=== PATIENT | male | born 1970 | race Asian ===

== ENCOUNTER 2017-12-09 01:33 | Inpatient (IN) | END 2017-12-10 16:54 | disposition home or self-care (01) | DRG 918 ==

== ENCOUNTER 2018-12-24 19:18 | Inpatient (IN) | payer MEDICAID ==
[~2018-12-24] VITALS: Ht 177.8 cm; Wt 68.5 kg
[2018-12-24] MEDS ORDERED: morphine 4 MG/ML VIAL IV STA (19:51)
[2018-12-24] MEDS ORDERED: ONDANSETRON 4 MG INJ IV STA (19:51)
[2018-12-24] MEDS ORDERED: ASPIRIN 325 MG TAB PO STA (19:51)
[2018-12-24] MEDS ORDERED: NITROGLYCERIN (SL) 0.4 MG TAB SL PRN (20:00)
[2018-12-24] MEDS: NICARDipine HCL 30 MG CAPSULE PO ONE (20:30)
[2018-12-24] MEDS ORDERED: NITROGLYCERIN 50 MG/D5W (PMX) 250 ML IV STA (20:39)
[2018-12-24] MEDS ORDERED: ALBUTEROL/IPRATROPIUM (NEB) 3 ML AMP HHN STA (20:39)
[2018-12-24] MEDS ORDERED: FUROSEMIDE 40 MG INJ IV ONE (21:00)
[2018-12-24] MEDS ORDERED: LABETALOL HCL 20MG INJ IV ONE (22:00)
--- NOTE | 2018-12-24 23:08 | ERD ---
ER Documentation Chief Complaint Chief Complaint PIETRO CAMEJO, has defib unable to sleep since last night HPI This is a very pleasant 48-year-old male with a past medical history of a pacemaker who presents to the emergency department complaining of chest pain and shortness of breath for the past several weeks. The patient indicates that the chest pain and shortness of breath has been persistent. The patient is unable to sleep at night without feeling short of breath when he is lying supine. He also indicates he is unable to walk several steps before becoming short of breath. Yesterday evening he stated his symptoms of shortness of breath significantly worsened. He denies any recent travel or prolonged immobilization. He states years ago he did take Lasix but has not been on any medications other than Coreg. The pacemaker was placed 3 years ago and the patient states his engineer soils named Dr. Coleman. He denies any fever shaking or chills. He denies any abdominal pain. ROS All systems reviewed and are negative except as per history of present illness. Medications Home Meds No Active Prescriptions or Reported Meds Allergies Allergies: Coded Allergies: No Known Allergy (Unverified , 12/08/17) PMhx/Soc History of Surgery: Yes (Pacemaker placement) Anesthesia Reaction: No Hx Neurological Disorder: No Hx Respiratory Disorders: No Hx Cardiac Disorders: Yes (HTN, CHF) Hx Psychiatric Problems: No Hx Miscellaneous Medical Probl: No Hx Alcohol Use: Yes (1-2 times monthly) Hx Substance Use: Yes (ETOH 2X A MONTH ) Hx Tobacco Use: Yes (Socially) Smoking Status: Current some day smoker Physical Exam Vitals Vital Signs Date Temp Pulse Resp B/P (MAP) Pulse Ox O2 O2 Flow FiO2 Time Delivery Rate 12/24/18 70 20 129/100 100 Room Air 22:50 (110) 12/24/18 70 18 154/106 100 Room Air 22:30 (122) 12/24/18 70 166/129 100 Room Air 22:15 (141) 12/24/18 67 20 179/133 100 Room Air 22:10 (148) 12/24/18 68 20 172/126 100 Room Air 22:05 (141) 12/24/18 68 19 169/127 Room Air 22:00 (141) 12/24/18 70 18 178/125 96 21:55 (142) 12/24/18 70 205/157 21:45 (173) 12/24/18 91 213/139 21:30 (163) 12/24/18 21 197/148 100 Room Air 21:20 (164) 12/24/18 91 19 205/156 100 Room Air 21:15 (172) 12/24/18 90 18 209/155 100 Room Air 21:10 (173) 12/24/18 90 20 216/121 100 Room Air 21:05 (152) 12/24/18 98 20 216/156 100 Room Air 21:00 (176) 12/24/18 95 19 211/139 97 Room Air 19:50 (163) 12/24/18 97.8 99 24 213/148 99 19:43 (169) Physical Exam Constitutional:Well-developed. Well-nourished. Patient was in no respiratory distress HEENT:Normocephalic. Atraumatic.Pupils were equal round reactive to light. Moist mucous membranes.No tonsillar exudates. Neck: No nuchal rigidity. No lymphadenopathy. No posterior cervical spine tenderness or step-offs. Respiratory: Not using accessory muscles of respiration.Lungs were clear to auscultation bilaterally. Bilateral rhonchi. No rales. No wheezing. Cardiovascular: Regular rate regular rhythm.No murmurs. No rubs were apprec iated.S1, S2 normal. Distal pulses are palpable 2+ bilaterally. GI: Abdomen was soft. Nontender. Non Distended. No pulsatile abdominal masses or bruits. No rebound. No guarding. Bowel sounds were present and normal. Muscle skeletal: Full range of motion of both the upper and lower extremities bilaterally.Normal muscle tone.No assymetrical calf tenderness or swelling. Skin: No petechia, no purpura. No lesions on the palms or the soles of the feet. No maculopapular rash. NEURO: Patient was alert, awake, orientated x3.No facial droop. Gait observed and normal with no ataxia.Speech had regular rate and rhythm. No focal neurological deficits. Result Diagram: 12/24/18200912/24/182009 Results 24 hrs Laboratory Tests Test 12/24/18 20:10 White Blood Count 8.2 10^3/ul Red Blood Count 5.63 10^6/ul Hemoglobin 16.8 g/dl Hematocrit 51.3 % Mean Corpuscular Volume 91.1 fl Mean Corpuscular Hemoglobin 29.8 pg Mean Corpuscular Hemoglobin Concent 32.7 g/dl Red Cell Distribution Width 15.1 % Platelet Count 249 10^3/UL Mean Platelet Volume 9.5 fl Immature Granulocytes % 0.200 % Neutrophils % 72.0 % Lymphocytes % 18.9 % Monocytes % 6.7 % Eosinophils % 1.1 % Basophils % 1.1 % Nucleated Red Blood Cells % 0.0 /100WBC Immature Granulocytes # 0.020 10^3/ul Neutrophils # 5.9 10^3/ul Lymphocytes # 1.5 10^3/ul Monocytes # 0.6 10^3/ul Eosinophils # 0.1 10^3/ul Basophils # 0.1 10^3/ul Nucleated Red Blood Cells # 0.0 10^3/ul Prothrombin Time 13.4 Sec Prothrombin Time Ratio 1.0 INR International Normalized Ratio 1.01 Activated Partial Thromboplast Time 36.9 Sec Sodium Level 141 mmol/L Potassium Level 4.4 mmol/L Chloride Level 103 mmol/L Carbon Dioxide Level 24 mmol/L Anion Gap 14 Blood Urea Nitrogen 32 mg/dl Creatinine 2.86 mg/dl Est Glomerular Filtrat Rate mL/min 24 mL/min Glucose Level 123 mg/dl Calcium Level 10.2 mg/dl Total Bilirubin 1.1 mg/dl Direct Bilirubin 0.00 mg/dl Indirect Bilirubin 1.1 mg/dl Aspartate Amino Transf (AST/SGOT) 29 IU/L Alanine Aminotransferase (ALT/SGPT) 26 IU/L Alkaline Phosphatase 117 IU/L Creatine Kinase 63 IU/L Creatine Kinase Index 2.7 Creatinine Kinase MB (Mass) 1.67 ng/ml Troponin I 0.074 ng/ml B-Type Natriuretic Peptide 32511 PG/ML Total Protein 8.9 g/dl Albumin 4.9 g/dl Globulin 4.00 g/dl Albumin/Globulin Ratio 1.22 Current Medications Medications Dose Sig/Jayden Start Time Status Last (Trade) Ordered Route PRN Stop Time Admin Dose Reason Admin Aspirin 325 mg ONCE STAT 12/24/18 DC 12/24/18 (Aspirin) PO 19:51 12/24/18 20:14 19:52 1 tab Q5M UP TO 3 12/24/18 12/24/18 Nitroglycerin DOSES PRN 20:00 20:14 SL .CHEST (Nitroglyceri PAIN n (Sl Tab) 0.4 Mg) Morphine 4 mg ONCE STAT 12/24/18 DC 12/24/18 Sulfate IV 19:51 12/24/18 20:15 (morphine) 19:52 Ondansetron 4 mg ONCE STAT 12/24/18 DC 12/24/18 HCl (Zofran IV 19:51 12/24/18 20:14 Inj) 19:52 Nicardipine 30 mg ONCE ONCE 12/24/18 DC 12/24/18 HCl PO 20:30 12/24/18 20:30 (Cardene) 20:31 Furosemide 40 mg ONCE ONCE 12/24/18 DC 12/24/18 (Lasix) IV 21:00 12/24/18 21:15 21:01 250 ml @ ONCE STAT 12/24/18 12/24/18 Nitroglycerin 12 mls/hr IV 20:39 12/25/18 20:48 / Dextrose 17:28 Albuterol/ 3 ml ONCE STAT 12/24/18 DC Ipratropium HHN 20:39 12/24/18 (Duoneb) 20:43 Labetalol 20 mg ONCE ONCE 12/24/18 DC 12/24/18 HCl IV 22:00 12/24/18 21:51 (Labetalol) 22:01 Procedures/MDM The patient presented to the emergency department with shortness of breath. My differential diagnosis included but was not limited to upper airway obstruction, CHF, pulmonary embolism, cardiac ischemia, pneumonia, pneumothorax, anemia, drug overdose, pulmonary edema, COPD or asthma. I obtained a 1 view chest radiograph which showed pulmonary vascular congestion. There was also cardiomegaly. The patient was given nebulizer treatments of albuterol and Atrovent. This patient presented to the emergency department with severely elevated blood pressure. My differential diagnosis included but was not limited to conditions that could end-organ damage such as acute coronary syndrome, acute pulmonary edema, aortic dissection, subarachnoid hemorrhage, intracerebral hemorrhage, cerebral infarction, withdrawal syndromes from beta blockers, or states of catecholamine excess such as pheochromocytoma or drug intoxication. The patient had uncontrolled hypertensive with end-organ damage to suggest hypertensive emergency. The treatment goal was immediate reduction of the mean arterial blood pressure. This was done in a controlled, graded manor, using improvement of the patient's condition as a guide. The patient's blood pressure reduction did not exceed more then a 20-25 percent reduction within the first 30 to 60 minutes. The patient was put on a cardiac cath lab radiology technologist, continuous pulse oximetry, and IV access was established by nursing staff. The antihypertensive agent used was nitroglycerin given that the patient was in severe congestive heart failure. The patient was also given a IV labetalol. His blood pressure had significantly improved. 12 Lead EKG tracing ordered and reviewed by myself showed: Sinus tachycardia 101 bpm and no arrhythmia. MN interval normal. QRS duration normal. No ST segment elevation No ST segment depression. No changes consistent with acute ischemia. Critical Care: Time: 90 minutes Treatments/Evaluations: Close monitoring and treatment of unstable vital signs, cardiorespiratory, and neurologic status, while maintaining tight balance of fluid, respiratory, and cardiac interventions. Time does not include performing any of the above billable procedures. Departure Diagnosis: Primary Impression: Hypertensive emergency Additional Impressions: Congestive heart failure Heart failure type: unspecified Heart failure chronicity: acute Qualified Codes: I50.9 - Heart failure, unspecified Renal failure Renal failure chronicity: acute Acute renal failure type: unspecified Qualified Codes: N17.9 - Acute kidney failure, unspecified Condition: Serious ALONA BAUER MD Dec 24, 2018 23:08
[2018-12-24] MEDS ORDERED: CARV3.1260 PO (23:10)
--- NOTE | 2018-12-24 23:16 | HP ---
Date/Time of Note Date/Time of Note DATE: 12/24/18 TIME: 23:16 Assessment/Plan VTE Prophylaxis Pharmacological prophylaxis: heparin Lines/Catheters IV [facility]from [facility] Saline Lock Assessment/Plan Hospital Course This is a 48-year-old male being admitted to the ICU floor for: #1 hypertensive emergency: With evidence of end organ damage. Surprisingly patient does not appear to be overtly volume overloaded or in any respiratory distress. He does have some vascular congestion on chest x-ray and on exam. He was initially given nicardipine however this is not help with his blood pressure and was subsequently started on a nitro drip which was titrated slowly and did result in improvement of his blood pressure. At the current time will maintain nitro drip to a goal of BP less than 160/115. Wean off nitro drip over the next 24 hours and initiate oral antihypertensives. Will check renal ultrasound with Dopplers given his creatinine of 2.86 which is significantly increased from 1 year ago of 1.40. We will also check an echocardiogram. #2 Acute on chronic systolic versus diastolic CHF exacerbation: Patient's EF a pproximately 1 year ago showed 50% ejection fraction. He does have vascular congestion but overtly does not appear to be significantly volume overloaded. He did receive Lasix in the ED however he has not urinated yet, will add Zaroxolyn and give another dose of Lasix 20 mg IV and reassess urine output. Salt restriction and fluid restriction. Will repeat an echocardiogram to assess heart morphology. Will consult cardiology. . Will resume carvedilol over the next 24 hours. We will hold off on any ABHIJEET inhibitor at the current time given patient's renal dysfunction and monitor renal function. Will check hemoglobin A1c, lipid panel, TSH. BNP elevated at 33,000 #3 acute on chronic kidney disease: Possibly in the setting of hypertensive nephrosclerosis. Previous creatinine is 1.40 today it is 2.86. This may be patient's new baseline. Will monitor patient's renal function. Will hold off on any ABHIJEET inhibitor or ARB at the current time. Will obtain a renal ultrasound with Doppler studies. Will consult nephrology. #4 Loop Recorder: patient reports pacemaker but on cxr appears to be loop recorder, cardio consulted appreciate recs. #5 Hypertension: Currently only on Coreg:, Please see #1. #6 DVT GI prophylaxis: SCDs, Protonix Greater than 45 minutes of critical care time was spent on care management this patient. Further treatment strategy will be implemented as per the clinical course. Result Diagram: 12/24/18200912/24/182009 Results 24hrs Laboratory Tests Test 12/24/18 20:10 White Blood Count 8.2 # Red Blood Count 5.63 # Hemoglobin 16.8 # Hematocrit 51.3 # Mean Corpuscular Volume 91.1 Mean Corpuscular Hemoglobin 29.8 Mean Corpuscular Hemoglobin Concent 32.7 Red Cell Distribution Width 15.1 H Platelet Count 249 Mean Platelet Volume 9.5 Immature Granulocytes % 0.200 Neutrophils % 72.0 Lymphocytes % 18.9 Monocytes % 6.7 Eosinophils % 1.1 Basophils % 1.1 Nucleated Red Blood Cells % 0.0 Immature Granulocytes # 0.020 Neutrophils # 5.9 Lymphocytes # 1.5 Monocytes # 0.6 Eosinophils # 0.1 Basophils # 0.1 Nucleated Red Blood Cells # 0.0 Prothrombin Time 13.4 Prothrombin Time Ratio 1.0 INR International Normalized Ratio 1.01 Activated Partial Thromboplast Time 36.9 H Sodium Level 141 Potassium Level 4.4 Chloride Level 103 Carbon Dioxide Level 24 Anion Gap 14 H Blood Urea Nitrogen 32 H Creatinine 2.86 H Est Glomerular Filtrat Rate mL/min 24 L Glucose Level 123 Calcium Level 10.2 Total Bilirubin 1.1 Direct Bilirubin 0.00 Indirect Bilirubin 1.1 Aspartate Amino Transf (AST/SGOT) 29 Alanine Aminotransferase (ALT/SGPT) 26 Alkaline Phosphatase 117 Creatine Kinase 63 Creatine Kinase Index 2.7 Creatinine Kinase MB (Mass) 1.67 Troponin I 0.074 B-Type Natriuretic Peptide 98482 H Total Protein 8.9 H Albumin 4.9 Globulin 4.00 H Albumin/Globulin Ratio 1.22 HPI/ROS Admit Date/Time Admit Date/Time Hx of Present Illness Chief complaint: Chest pain, shortness of breath for the last several weeks This is a very pleasant 48-year-old male with a past medical history of a pacemaker who presents to the emergency department complaining of chest pain and shortness of breath for the past several weeks. The patient indicates that the chest pain and shortness of breath has been persistent. The patient is unable to sleep at night without feeling short of breath when he is lying supine. He also indicates he is unable to walk several steps before becoming short of breath. Yesterday evening he stated his symptoms of shortness of breath significantly worsened. He denies any recent travel or prolonged immobilization. He is currently only on Coreg, he did report that in the past he was on Lasix.. The pacemaker was placed 3 years ago and the patient states his search marketing specialist named Dr. Coleman. He denies any fever shaking or chills. He denies any abdominal pain. Allergies: NKDA Medications: See Nov Const: As per HPI Eyes : No pain discharge or redness or change in visual acuity ENT: No pain, sore throat, congestion, congestion, dysphagia or discharge Respiratory: No shortness of breath, cough, sputum, wheezing, or pleuritic pain Cardiovascular: As per HPI GI : no change in appetite, abdominal pain, nausea, vomiting, diarrhea, constipation, or change in the color his stool Genitourinary: No dysuria, hematuria, flank pain , discharge or CVA tenderness Musculoskeletal: No joint pain, back pain, neck pain, restricted range of motion in neck or joints Skin: No rash, bruising or hives Neuro: No headache, dizziness, syncope, seizure, focal weakness Endocrine: No polyuria, polydipsia, temperature intolerance Psych: No hallucination, depression, anxiety or suicidal ideation PMH/Family/Social Past Medical History Hypertension, history of CHF Medications Current Medications Nitroglycerin (Nitroglycerin (Sl Tab) 0.4 Mg) 1 tab Q5M UP TO 3 DOSES PRN SL .CHEST PAIN Last administered on 12/24/18at 20:14; Admin Dose 1 TAB; Start 12/24/18 at 20:00 Nitroglycerin/ Dextrose 250 ml @ 12 mls/hr ONCE STAT IV Last administered on 12/24/18at 20:48; Admin Dose 12 MLS/HR; Start 12/24/18 at 20:39; Stop 12/25/18 at 17:28 Ondansetron HCl (Zofran Inj) 4 mg Q6H PRN IV NAUSEA AND/OR VOMITING; Start 12/24/18 at 23:30; Status UNV Acetaminophen (Tylenol Liquid) 650 mg Q6H PRN PO PAIN LEVEL 1-3 OR FEVER; Start 12/24/18 at 23:30; Status UNV Docusate Sodium (Colace) 100 mg Q12H PRN PO CONSTIPATION; Start 12/24/18 at 23:30; Status UNV Bisacodyl (Dulcolax) 5 mg DAILY PRN PO CONSTIPATION; Start 12/24/18 at 23:30; Status UNV Pantoprazole (Protonix Iv) 40 mg DAILY@06 IV ; Start 12/25/18 at 06:00; Status UNV Heparin Sodium (Porcine) (Heparin (5000 Units/1ml)) 5,000 unit Q8 SC ; Start 12/24/18 at 23:30; Status UNV Coded Allergies: No Known Allergy (Unverified , 12/24/18) Past Surgical History Questionable pacemaker placement Family History Significant Family History: no pertinent family hx Social History Alcohol Use: none Smoking Status: Current some day smoker Drug Use: none Exam/Review of Systems Vital Signs Vitals Vital Signs Date Temp Pulse Resp B/P (MAP) Pulse Ox O2 O2 Flow FiO2 Time Delivery Rate 12/24/18 67 18 152/105 100 Room Air 23:01 (121) 12/24/18 97.8 19:43 Exam Exam General: Patient is a pleasant male currently sitting upright in bed he does not appear to be in any acute distress HEENT: Atraumatic, normocephalic. The pupils are equal, round and reactive. Extraocular motor are intact Neck: Supple with full range of motion. No rigidity or meningismus Chest: Nontender Lungs: Coarse breath sounds bilaterally, mild rales at the bases, non-labored breathing Heart: Normal S1-S2, Regular rhythm and rate. Positive JVD Abdomen: Soft , nontender, nondistended , bowel sounds are present. No guarding no rebound tenderness , No masses or organomegaly. No costovertebral temporal angle mass Extremities: Normal to inspection, no edema no cyanosis Neurologic: Normal mental status, speech normal, cranial nerves II through XII are intact, motor and sensory are intact, no focal weakness Additional Comments 12 Lead EKG Sinus tachycardia 101 bpm and no arrhythmia. SD interval normal. QRS duration normal. No ST segment elevation No ST segment depression. No changes consistent with acute ischemia. PROCEDURE: XR Chest AP portable CLINICAL INDICATION: Chest pain TECHNIQUE: An AP portable radiograph of the chest was submitted. COMPARISON: 12/08/2017 FINDINGS: Support Hardware: None Cardiovascular: The heart size has increased and is mild to moderately enlarged and the pulmonary vasculature appears mildly congested. The aorta appears atherosclerotic. A loop recorder projects to the chest at the level of the aortic arch. Lung Rodríguez: The lung rodríguez appear clear with no nodule, alveolar infiltrate, or interstitial prominence evident. Pleural Spaces: No pneumothorax or pleural effusion is identified. Osseous Structures: The osseous structures appear intact. Soft Tissues: The soft tissues appear unremarkable. IMPRESSION: 1. The heart size is increased and is now mild to moderately enlarged with the pulmonary vasculature mildly congested. The aorta again appears atherosclerotic. 2. The lung rodríguez and pleural spaces remain clear. 3. A loop recorder projects to the chest and aortic arch. Physician Bari Date Time Electronically viewed and signed by Physician Bari on 12/24/2018 20:13 RH/ CC: ALONA BAUER MD [id number] AMINA ESTRADA Dec 24, 2018 23:16
[2018-12-24] MEDS ORDERED: BISACODYL (EC) 5 MG TAB PO PRN (23:30)
[2018-12-24] MEDS ORDERED: ONDANSETRON 4 MG INJ IV PRN (23:30)
[2018-12-24] MEDS ORDERED: METOLAZONE 2.5 MG TAB PO ONE (23:30)
[2018-12-24] MEDS ORDERED: DOCUSATE SODIUM 100 MG CAP PO PRN (23:30)
[2018-12-24] MEDS ORDERED: ACETAMINOPHEN 650MG/20.3ML CUP PO PRN (23:30)
[2018-12-24] MEDS ORDERED: FUROSEMIDE 20 MG INJ IV ONE (23:58)
[2018-12-25] VITALS (57 sets, daily range): BP systolic 141–176; BP diastolic 90–127; PULSE 66–84; RESP 11–38; Ht 177.8 cm; Wt 68.5 kg
[2018-12-25] MEDS: HEPARIN 5,000 UNIT/1 ML VIAL SC SCH ×4 (00:30→21:37)
[2018-12-25] MEDS ORDERED: PANTOPRAZOLE 40 MG INJ IV SCH (06:00)
[2018-12-25] MEDS ORDERED: FUROSEMIDE 40 MG INJ IV SCH (06:00)
[2018-12-25] MEDS: NITROGLYCERIN 50 MG/D5W (PMX) 250 ML IV SCH ×3 (06:03→14:05)
--- NOTE | 2018-12-25 09:33 | CONS ---
Assessment/Plan Assessment/Plan Assessment/Plan (Daily) 1, acute kidney injury vs Acute kidney injury on CKD III 2. Hypertensve emergency 3. acute chest pain 4. H.o HTN 5. Diastoic CHF 6. H/o CKD with baselien Cr 1.5 Plan: seen in [facility]CU, CXR mildly congested, On NTG drip plan is to titrate drip off , then downgrade to tele floor Resume PO BP meds lasix 20mg IV x 1 dosw now Renal US Unremarkable renal ultrasound. No evidence of renal calculi or obstructive uropathy Urine studies including Urine Na, Urine protein/Cr ration, urine Eosinophils, CK total, Uric acid Thanks for consultaiton, I will continue to follow up Consultation Date/Type/Reason Admit Date/Time 12/24/18 Date of Consultation: Dec 25, 2018 Type of Consult NEPHROLOGY Reason for Consultation acute kidney injury Requesting Provider: AMINA ESTRADA Date/Time of Note DATE: 12/25/18 TIME: 09:31 Hx of Present Illness 48 yo M with a h/o CKD (prior known Cr 1.5), HTN, chronic diastolic CHF, who pre sented with dyspnea and BP 210/150s. He was placed on a NTG drip and diuresed. He notes that he has been having dyspnea with exertion and orthopnea for 1 week. His BP is apparently in the 200s routinely. He only takes coreg 3.125mg. He has a loop recorder for history of syncope. Currently remains on NTG drip. Still with mild SOB but appears very comfortable. On admission BUN/Cr 32/2.86, BP in 220s - Renal has been consulted for acute kidney injury vs Acute kidney injury on CKD III Constitutional: no complaints Eyes: no complaints ENT: no complaints Respiratory: no complaints Cardiovascular: chest pain, lightheadedness, orthopenea Gastrointestinal: no complaints Genitourinary: no complaints Musculoskeletal: no complaints Skin: no complaints Neurologic: no complaints Endocrine: no complaints Lymphatic: no complaints Psychological: no complaints Immunologic: no complaints Past Medical History Medical History: congestive heart failure, high cholesterol, hypertension, renal disease, other (diastolic CHF ) Home Meds Reported Medications Carvedilol* (Carvedilol*) 3.125 Mg Tablet, 3.125 MG PO BID, #60 TAB 12/24/18 Medications Current Medications Nitroglycerin (Nitroglycerin (Sl Tab) 0.4 Mg) 1 tab Q5M UP TO 3 DOSES PRN SL .CHEST PAIN Last administered on 12/24/18at 20:14; Admin Dose 1 TAB; Start 12/24/18 at 20:00 Ondansetron HCl (Zofran Inj) 4 mg Q6H PRN IV NAUSEA AND/OR VOMITING; Start 12/24/18 at 23:30 Acetaminophen (Tylenol Liquid) 650 mg Q6H PRN PO PAIN LEVEL 1-3 OR FEVER; Sta rt 12/24/18 at 23:30 Docusate Sodium (Colace) 100 mg Q12H PRN PO CONSTIPATION; Start 12/24/18 at 23:30 Bisacodyl (Dulcolax) 5 mg DAILY PRN PO CONSTIPATION; Start 12/24/18 at 23:30 Pantoprazole (Protonix Iv) 40 mg DAILY@06 IV Last administered on 12/25/18at 05:46; Admin Dose 40 MG; Start 12/25/18 at 06:00 Heparin Sodium (Porcine) (Heparin (5000 Units/1ml)) 5,000 unit Q8 SC Last administered on 12/25/18at 05:49; Admin Dose 5,000 UNIT; Start 12/24/18 at 23:30 Furosemide (Lasix) 40 mg BID DIURETICS IV Last administered on 12/25/18at 05:46; Admin Dose 40 MG; Start 12/25/18 at 06:00; Stop 12/26/18 at 05:59 Nitroglycerin/ Dextrose 250 ml @ 1.5 mls/hr TITRATE IV Last administered on 12/25/18at 06:03; Admin Dose 42 MLS/HR; Start 12/25/18 at 06:00 Allergies: Coded Allergies: No Known Allergy (Unverified , 12/24/18) Past Surgical History Past Surgical Hx: no surgical history Family History Significant Family History: no pertinent family hx Social History Alcohol Use: none Smoking Status: Light tobacco smoker Drug Use: none Exam/Review of Systems Exam Vitals Vital Signs Date Temp Pulse Resp B/P (MAP) Pulse Ox O2 O2 Flow FiO2 Time Delivery Rate 12/25/18 75 23 164/105 97 08:30 (124) 12/25/18 Room Air 08:00 12/25/18 97.9 04:00 Intake and Output 12/24/18 12/24/18 12/25/18 1515:00 23:00 07:00 IntakeIntake Total 235.875 ml OutputOutput Total 3140 ml BalanceBalance -2904.125 ml Constitutional: alert Psych: no complaints Head: normocephalic Eyes: nl conjunctiva ENMT: nl external ears & nose Neck: supple, non-tender Respiratory: clear to auscultation, congested cough, diminished breath sounds Cardiovascular: regular rate and rhythm, nl pulses Gastrointestinal: soft, non-tender Musculoskeletal: nl extremities to inspection, nl gait and stance Extremities: normal pulses Neurological: LENGTH CONTROL TESTER II-XII intact, nl mental status, nl speech, nl strength Skin: nl turgor, rash or lesions Lymph: nl lymph nodes, enlarged Results Result Diagram: 12/25/1843412/25/18434 Results 24hrs Laboratory Tests Test 12/24/18 20:10 12/25/18 04:35 White Blood Count 8.2 # 7.4 Red Blood Count 5.63 # 4.58 L Hemoglobin 16.8 # 13.9 L Hematocrit 51.3 # 41.4 L Mean Corpuscular Volume 91.1 90.4 Mean Corpuscular Hemoglobin 29.8 30.3 Mean Corpuscular Hemoglobin Concent 32.7 33.6 Red Cell Distribution Width 15.1 H 14.6 H Platelet Count 249 236 Mean Platelet Volume 9.5 9.7 Immature Granulocytes % 0.200 0.300 Neutrophils % 72.0 69.5 Lymphocytes % 18.9 18.9 Monocytes % 6.7 9.0 Eosinophils % 1.1 1.2 Basophils % 1.1 1.1 Nucleated Red Blood Cells % 0.0 0.0 Immature Granulocytes # 0.020 0.020 Neutrophils # 5.9 5.1 Lymphocytes # 1.5 1.4 Monocytes # 0.6 0.7 Eosinophils # 0.1 0.1 Basophils # 0.1 0.1 Nucleated Red Blood Cells # 0.0 0.0 Prothrombin Time 13.4 Prothrombin Time Ratio 1.0 INR International Normalized Ratio 1.01 Activated Partial Thromboplast Time 36.9 H Sodium Level 141 142 Potassium Level 4.4 4.1 Chloride Level 103 104 Carbon Dioxide Level 24 26 Anion Gap 14 H 12 Blood Urea Nitrogen 32 H 35 H Creatinine 2.86 H 2.99 H Est Glomerular Filtrat Rate mL/min 24 L 22 L Glucose Level 123 110 Calcium Level 10.2 9.6 Total Bilirubin 1.1 0.8 Direct Bilirubin 0.00 0.00 Indirect Bilirubin 1.1 0.8 Aspartate Amino Transf (AST/SGOT) 29 24 Alanine Aminotransferase (ALT/SGPT) 26 25 Alkaline Phosphatase 117 87 Creatine Kinase 63 53 Creatine Kinase Index 2.7 2.7 Creatinine Kinase MB (Mass) 1.67 1.45 Troponin I 0.074 0.085 B-Type Natriuretic Peptide 18848 H Total Protein 8.9 H 7.4 # Albumin 4.9 4.1 Globulin 4.00 H 3.30 H Albumin/Globulin Ratio 1.22 1.24 Hemoglobin A1c 5.8 Magnesium Level 2.0 Triglycerides Level 87 Cholesterol Level 109 LDL Cholesterol, Calculated 59 HDL Cholesterol 33 Cholesterol/HDL Ratio 3.3 Thyroid Stimulating Hormone (TSH) 3.810 Medications Medication Current Medications Nitroglycerin (Nitroglycerin (Sl Tab) 0.4 Mg) 1 tab Q5M UP TO 3 DOSES PRN SL .CHEST PAIN Last administered on 12/24/18at 20:14; Admin Dose 1 TAB; Start 12/24/18 at 20:00 Ondansetron HCl (Zofran Inj) 4 mg Q6H PRN IV NAUSEA AND/OR VOMITING; Start 12/24/18 at 23:30 Acetaminophen (Tylenol Liquid) 650 mg Q6H PRN PO PAIN LEVEL 1-3 OR FEVER; Start 12/24/18 at 23:30 Docusate Sodium (Colace) 100 mg Q12H PRN PO CONSTIPATION; Start 12/24/18 at 23:30 Bisacodyl (Dulcolax) 5 mg DAILY PRN PO CONSTIPATION; Start 12/24/18 at 23:30 Pantoprazole (Protonix Iv) 40 mg DAILY@06 IV Last administered on 12/25/18at 05:46; Admin Dose 40 MG; Start 12/25/18 at 06:00 Heparin Sodium (Porcine) (Heparin (5000 Units/1ml)) 5,000 unit Q8 SC Last administered on 12/25/18at 05:49; Admin Dose 5,000 UNIT; Start 12/24/18 at 23:30 Furosemide (Lasix) 40 mg BID DIURETICS IV Last administered on 12/25/18at 05:46; Admin Dose 40 MG; Start 12/25/18 at 06:00; Stop 12/26/18 at 05:59 Nitroglycerin/ Dextrose 250 ml @ 1.5 mls/hr TITRATE IV Last administered on 12/25/18at 06:03; Admin Dose 42 MLS/HR; Start 12/25/18 at 06:00 KATE TOUSSAINT MD Dec 25, 2018 09:33
[2018-12-25] MEDS ORDERED: FUROSEMIDE 20 MG INJ IV STA (09:35)
--- NOTE | 2018-12-25 10:20 | PN ---
Date/Time of Note Date/Time of Note DATE: 12/25/18 TIME: 10:14 Assessment/Plan VTE Prophylaxis Risk score (from Ns)>0 risk: 3 SCD applied (from Ns): Yes Pharmacological prophylaxis: heparin Pharm contraindication: low risk/ambulating Lines/Catheters IV [facility]from [facility] Peripheral IV Assessment/Plan Assessment/Plan 48 yo man with uncontrolled hypertension and chronic congestive heart failure presents with shortness of breath. #Hypertension - Patient says at home blood pressure typically runs systolic 180s-200s. - Will continue carvedilol, uptitrate aggressively. - Also added isosorbide dinitrate. - Taper off nitroglycerine gtt. #ESSENCE - Elevated Cr compared to baseline - Hold ACEi, renally dose all meds, no nephrotoxins. - Dr. Joseph consulted #diastolic CHF exacerbation: - Patient's EF approximately 1 year ago showed 50% ejection fraction. Will repeat echo. - CXR shows vascular congestion, he reports orthopnea. - Moderate diuresis with lasix 40 BID. - Dr. Tee consulted. # DVT GI prophylaxis: SCDs, Protonix Greater than 45 minutes of critical care time was spent on care management this patient. Result Diagram: 12/25/18 0435 12/25/18 0435 Subjective 24 Hr Interval Summary Free Text/Dictation No acute overnight events. Patient says his breathing feels much better. Currently on room air. Still on nitro gtt. Exam/Review of Systems Exam Vitals Vital Signs Date Temp Pulse Resp B/P (MAP) Pulse Ox O2 O2 Flow FiO2 Time Delivery Rate 12/25/18 75 23 164/105 97 08:30 (124) 12/25/18 Room Air 08:00 12/25/18 97.9 04:00 Intake and Output 12/24/18 12/24/18 12/25/18 1515:00 23:00 07:00 IntakeIntake Total 235.875 ml OutputOutput Total 3140 ml BalanceBalance -2904.125 ml Exam General: Well developed man lying in bed he does not appear to be in any acute distress HEENT: Atraumatic, normocephalic. The pupils are equal, round and reactive. E xtraocular motor are intact Neck: Supple with full range of motion. No rigidity or meningismus, No JVD. Chest: Nontender Lungs: Coarse breath sounds bilaterally, mild rales at the bases, non-labored breathing Heart: Normal S1-S2, Regular rhythm and rate. Positive JVD Abdomen: Soft , nontender, nondistended , hyperactive bowel sounds are present. No guarding no rebound tenderness , Extremities: Normal to inspection, no edema no cyanosis Results Results 24hrs Laboratory Tests Test 12/24/18 20:10 12/25/18 04:35 White Blood Count 8.2 # 7.4 Red Blood Count 5.63 # 4.58 L Hemoglobin 16.8 # 13.9 L Hematocrit 51.3 # 41.4 L Mean Corpuscular Volume 91.1 90.4 Mean Corpuscular Hemoglobin 29.8 30.3 Mean Corpuscular Hemoglobin Concent 32.7 33.6 Red Cell Distribution Width 15.1 H 14.6 H Platelet Count 249 236 Mean Platelet Volume 9.5 9.7 Immature Granulocytes % 0.200 0.300 Neutrophils % 72.0 69.5 Lymphocytes % 18.9 18.9 Monocytes % 6.7 9.0 Eosinophils % 1.1 1.2 Basophils % 1.1 1.1 Nucleated Red Blood Cells % 0.0 0.0 Immature Granulocytes # 0.020 0.020 Neutrophils # 5.9 5.1 Lymphocytes # 1.5 1.4 Monocytes # 0.6 0.7 Eosinophils # 0.1 0.1 Basophils # 0.1 0.1 Nucleated Red Blood Cells # 0.0 0.0 Prothrombin Time 13.4 Prothrombin Time Ratio 1.0 INR International Normalized Ratio 1.01 Activated Partial Thromboplast Time 36.9 H Sodium Level 141 142 Potassium Level 4.4 4.1 Chloride Level 103 104 Carbon Dioxide Level 24 26 Anion Gap 14 H 12 Blood Urea Nitrogen 32 H 35 H Creatinine 2.86 H 2.99 H Est Glomerular Filtrat Rate mL/min 24 L 22 L Glucose Level 123 110 Calcium Level 10.2 9.6 Total Bilirubin 1.1 0.8 Direct Bilirubin 0.00 0.00 Indirect Bilirubin 1.1 0.8 Aspartate Amino Transf (AST/SGOT) 29 24 Alanine Aminotransferase (ALT/SGPT) 26 25 Alkaline Phosphatase 117 87 Creatine Kinase 63 53 Creatine Kinase Index 2.7 2.7 Creatinine Kinase MB (Mass) 1.67 1.45 Troponin I 0.074 0.085 B-Type Natriuretic Peptide 28154 H Total Protein 8.9 H 7.4 # Albumin 4.9 4.1 Globulin 4.00 H 3.30 H Albumin/Globulin Ratio 1.22 1.24 Hemoglobin A1c 5.8 Magnesium Level 2.0 Triglycerides Level 87 Cholesterol Level 109 LDL Cholesterol, Calculated 59 HDL Cholesterol 33 Cholesterol/HDL Ratio 3.3 Thyroid Stimulating Hormone (TSH) 3.810 Medications Medication Current Medications Ondansetron HCl (Zofran Inj) 4 mg Q6H PRN IV NAUSEA AND/OR VOMITING; Start 12/24/18 at 23:30 Acetaminophen (Tylenol Liquid) 650 mg Q6H PRN PO PAIN LEVEL 1-3 OR FEVER; Start 12/24/18 at 23:30 Docusate Sodium (Colace) 100 mg Q12H PRN PO CONSTIPATION; Start 12/24/18 at 23:30 Bisacodyl (Dulcolax) 5 mg DAILY PRN PO CONSTIPATION; Start 12/24/18 at 23:30 Pantoprazole (Protonix Iv) 40 mg DAILY@06 IV Last administered on 12/25/18at 05:46; Admin Dose 40 MG; Start 12/25/18 at 06:00 Heparin Sodium (Porcine) (Heparin (5000 Units/1ml)) 5,000 unit Q8 SC Last administered on 12/25/18at 05:49; Admin Dose 5,000 UNIT; Start 12/24/18 at 23:30 Furosemide (Lasix) 40 mg BID DIURETICS IV Last administered on 12/25/18at 05:46; Admin Dose 40 MG; Start 12/25/18 at 06:00; Stop 12/26/18 at 05:59 Nitroglycerin/ Dextrose 250 ml @ 1.5 mls/hr TITRATE IV Last administered on 12/25/18at 06:03; Admin Dose 42 MLS/HR; Start 12/25/18 at 06:00 Carvedilol (Coreg) 6.25 mg BID PO ; Start 12/25/18 at 10:00 Isosorbide Dinitrate (Isordil) 10 mg TID PO ; Start 12/25/18 at 13:00 FAWAD CREWS MD Dec 25, 2018 10:20
--- NOTE | 2018-12-25 12:06 | CONS ---
Assessment/Plan Cardiology NYHA: IV Heart Failure Type: Acute on Chronic Heart Failure Type: Diastolic Assessment/Plan Hospital Course (Demo Recall) Hypertensive crisis: Admission BP 210/150s. Now better on NTG drip. Uncontrolled chronically Acute on chronic diastolic CHF: EF previously normal. Diuresed on admission. Euvolemic on my exam Acute on chronic renal failure: Previous known Cr 1.5 2017. ?new baseline with uncontrolled HTN -start amlodipine 10mg -increase to coreg 12.5mg BID -can start ACEI or ARB if renal function stable tomorrow -wean off NTG drip. Keep SBP <160 for now -d/c lasix. Will assess need daily. May not need it chronically once BP controlled -ASA -f/u repeat echo Consultation Date/Type/Reason Admit Date/Time 12/24/18 Date of Consultation: Dec 25, 2018 Type of Consult Cardiology Reason for Consultation CHF, HTN emergency Requesting Provider: AMINA ESTRADA Date/Time of Note DATE: 12/25/18 TIME: 12:00 Hx of Present Illness 48 yo M with a h/o CKD (prior known Cr 1.5), HTN, chronic diastolic CHF, who presented with dyspnea and BP 210/150s. He was placed on a NTG drip and diuresed. He notes that he has been having dyspnea with exertion and orthopnea for 1 week. His BP is apparently in the 200s routinely. He only takes coreg 3.125mg. He has a loop recorder for history of syncope. Currently remains on NTG drip. Still with mild SOB but appears very comfortable. per HPI Past Medical History per HPI Home Meds Reported Medications Carvedilol* (Carvedilol*) 3.125 Mg Tablet, 3.125 MG PO BID, #60 TAB 12/24/18 Medications Current Medications Ondansetron HCl (Zofran Inj) 4 mg Q6H PRN IV NAUSEA AND/OR VOMITING; Start 12/24/18 at 23:30 Acetaminophen (Tylenol Liquid) 650 mg Q6H PRN PO PAIN LEVEL 1-3 OR FEVER; Start 12/24/18 at 23:30 Docusate Sodium (Colace) 100 mg Q12H PRN PO CONSTIPATION; Start 12/24/18 at 23:30 Bisacodyl (Dulcolax) 5 mg DAILY PRN PO CONSTIPATION; Start 12/24/18 at 23:30 Pantoprazole (Protonix Iv) 40 mg DAILY@06 IV Last administered on 12/25/18at 05:46; Admin Dose 40 MG; Start 12/25/18 at 06:00 Heparin Sodium (Porcine) (Heparin (5000 Units/1ml)) 5,000 unit Q8 SC Last administered on 12/25/18at 05:49; Admin Dose 5,000 UNIT; Start 12/24/18 at 23:30 Furosemide (Lasix) 40 mg BID DIURETICS IV Last administered on 12/25/18at 05:46; Admin Dose 40 MG; Start 12/25/18 at 06:00; Stop 12/26/18 at 05:59 Nitroglycerin/ Dextrose 250 ml @ 1.5 mls/hr TITRATE IV Last administered on 12/25/18at 11:45; Admin Dose 75 MLS/HR; Start 12/25/18 at 06:00 Carvedilol (Coreg) 6.25 mg BID PO Last administered on 12/25/18at 11:44; Admin Dose 6.25 MG; Start 12/25/18 at 10:00 Isosorbide Dinitrate (Isordil) 10 mg TID PO ; Start 12/25/18 at 13:00 Allergies: Coded Allergies: No Known Allergy (Unverified , 12/24/18) Social History Alcohol Use: none Smoking Status: Light tobacco smoker Drug Use: none Exam/Review of Systems Vital Signs Vitals Vital Signs Date Temp Pulse Resp B/P (MAP) Pulse Ox O2 O2 Flow FiO2 Time Delivery Rate 12/25/18 76 16 156/91 96 10:45 (112) 12/25/18 Room Air 10:30 12/25/18 97.9 04:00 Intake and Output 12/24/18 12/24/18 12/25/18 1414:59 22:59 06:59 IntakeIntake Total 235.875 ml OutputOutput Total 3140 ml BalanceBalance -2904.125 ml Exam Constitutional: alert, oriented Psych: no complaints, nl mood/affect Head: normocephalic, atraumatic Neck: supple; No jvd Respiratory: clear to auscultation; No crackles/rales Cardiovascular: regular rate and rhythm; No edema, No systolic murmur Gastrointestinal: soft, non-tender Neurological: nl mental status, nl speech Labs Result Diagram: 12/25/18 0435 12/25/18 0435 Results 24hrs Laboratory Tests Test 12/24/18 20:10 12/25/18 04:35 12/25/18 10:20 White Blood Count 8.2 # 7.4 Red Blood Count 5.63 # 4.58 L Hemoglobin 16.8 # 13.9 L Hematocrit 51.3 # 41.4 L Mean Corpuscular Volume 91.1 90.4 Mean Corpuscular Hemoglobin 29.8 30.3 Mean Corpuscular Hemoglobin Concent 32.7 33.6 Red Cell Distribution Width 15.1 H 14.6 H Platelet Count 249 236 Mean Platelet Volume 9.5 9.7 Immature Granulocytes % 0.200 0.300 Neutrophils % 72.0 69.5 Lymphocytes % 18.9 18.9 Monocytes % 6.7 9.0 Eosinophils % 1.1 1.2 Basophils % 1.1 1.1 Nucleated Red Blood Cells % 0.0 0.0 Immature Granulocytes # 0.020 0.020 Neutrophils # 5.9 5.1 Lymphocytes # 1.5 1.4 Monocytes # 0.6 0.7 Eosinophils # 0.1 0.1 Basophils # 0.1 0.1 Nucleated Red Blood Cells # 0.0 0.0 Prothrombin Time 13.4 Prothrombin Time Ratio 1.0 INR International Normalized Ratio 1.01 Activated Partial Thromboplast Time 36.9 H Sodium Level 141 142 Potassium Level 4.4 4.1 Chloride Level 103 104 Carbon Dioxide Level 24 26 Anion Gap 14 H 12 Blood Urea Nitrogen 32 H 35 H Creatinine 2.86 H 2.99 H Est Glomerular Filtrat Rate mL/min 24 L 22 L Glucose Level 123 110 Calcium Level 10.2 9.6 Total Bilirubin 1.1 0.8 Direct Bilirubin 0.00 0.00 Indirect Bilirubin 1.1 0.8 Aspartate Amino Transf (AST/SGOT) 29 24 Alanine Aminotransferase (ALT/SGPT) 26 25 Alkaline Phosphatase 117 87 Creatine Kinase 63 53 53 Creatine Kinase Index 2.7 2.7 2.4 Creatinine Kinase MB (Mass) 1.67 1.45 1.25 Troponin I 0.074 0.085 0.067 B-Type Natriuretic Peptide 11536 H Total Protein 8.9 H 7.4 # Albumin 4.9 4.1 Globulin 4.00 H 3.30 H Albumin/Globulin Ratio 1.22 1.24 Hemoglobin A1c 5.8 Magnesium Level 2.0 Triglycerides Level 87 Cholesterol Level 109 LDL Cholesterol, Calculated 59 HDL Cholesterol 33 Cholesterol/HDL Ratio 3.3 Thyroid Stimulating Hormone (TSH) 3.810 Medications Medications Current Medications Ondansetron HCl (Zofran Inj) 4 mg Q6H PRN IV NAUSEA AND/OR VOMITING; Start 12/24/18 at 23:30 Acetaminophen (Tylenol Liquid) 650 mg Q6H PRN PO PAIN LEVEL 1-3 OR FEVER; Start 12/24/18 at 23:30 Docusate Sodium (Colace) 100 mg Q12H PRN PO CONSTIPATION; Start 12/24/18 at 23:30 Bisacodyl (Dulcolax) 5 mg DAILY PRN PO CONSTIPATION; Start 12/24/18 at 23:30 Pantoprazole (Protonix Iv) 40 mg DAILY@06 IV Last administered on 12/25/18at 05:46; Admin Dose 40 MG; Start 12/25/18 at 06:00 Heparin Sodium (Porcine) (Heparin (5000 Units/1ml)) 5,000 unit Q8 SC Last administered on 12/25/18at 05:49; Admin Dose 5,000 UNIT; Start 12/24/18 at 23:30 Furosemide (Lasix) 40 mg BID DIURETICS IV Last administered on 12/25/18at 05:46; Admin Dose 40 MG; Start 12/25/18 at 06:00; Stop 12/26/18 at 05:59 Nitroglycerin/ Dextrose 250 ml @ 1.5 mls/hr TITRATE IV Last administered on 12/25/18at 11:45; Admin Dose 75 MLS/HR; Start 12/25/18 at 06:00 Carvedilol (Coreg) 6.25 mg BID PO Last administered on 12/25/18at 11:44; Admin Dose 6.25 MG; Start 12/25/18 at 10:00 Isosorbide Dinitrate (Isordil) 10 mg TID PO ; Start 12/25/18 at 13:00 IMMANUEL JIMÉNEZ Dec 25, 2018 12:06
--- NOTE | 2018-12-25 12:37 | RADRPT ---
Echocardiogram Report Patient Name: VI NEWTONPatient ID: [id number] : 1970 (48y 2m)Study Date: 12/25/2018 8:22:50 AM Gender: MAccession #: [id number] Tech: Krish Caraballo [facility] Location: [address] Ref.Physician: AMINA ESTRADA Height(Cm): BSA: Weight(Kg): Quality: AdequateAccount #: Procedures: Echocardiographic Report: Transthoracic echocardiogram with complete 2D, M-Mode, and doppler examination. Indications: Hypertensive emergency, sob. Measurements: 2D/M Mode Doppler Measurement Value Normal Range Measurement Value Normal Range LVIDd 2D 5.1 [ 4.2 - 5.8 ] cm AV Peak Tripp 1.4 [ 100.0 - 170.0 ] cm/sec LVIDs 2D 4.5 [ 2.5 - 4.0 ] cm AV Peak PG 8.0 [ 2.0 - 9.0 ] mmHg LVPWd 2D 1.5 [ 0.6 - 1.0 ] cm LVOT Peak Tripp 0.7 [ 70.0 - 110.0 ] cm/sec IVSd 2D 1.9 [ 0.6 - 1.0 ] cm LVOT Peak PG 2.0 [ 2.0 - 6.0 ] mmHg AoR Diam 2D 2.8 [ 2.6 - 3.4 ] cm MV E Peak Tripp 0.8 [ 60.0 - 130.0 ] cm/sec EDV 2D 124.0 [ 62.0 - 150.0 ] ml MV A Peak Tripp 0.6 [ 100.0 - 120.0 ] cm/sec ESV 2D 92.4 [ 21.0 - 61.0 ] ml MV E/A 1.2 [ 0.8 - 1.5 ] ratio EF 2D 25.5 [ 52.0 - 72.0 ] percent MV Decel Time 173 [ 104 - 258 ] msec LA Dimen 2D 3.5 [ 3.0 - 4.0 ] cm Lat E` Tripp 0.0 [ 10.0 - 15.0 ] cm/sec Lateral E/E` 19.8 [ 1.0 - 2.0 ] ratio MV E/A 1.2 [ 0.8 - 1.5 ] ratio TR Peak Tripp 3.0 [ 100.0 - 280.0 ] cm/sec TR Peak PG 37.0 mmHg RVSP 40.0 [ 10.0 - 36.0 ] mmHg Findings: Left Ventricle: Normal left ventricular cavity size. Severe asymmetric septal hypertrophy. Septum 1.8cm, inferolateral wall 1.5cm. Moderate global left ventricular systolic dysfunction. Ejection fraction is visually estimated at 35 %. Tissue Doppler/Mitral Doppler indices are consistent with pseudonormalization with mildly elevated left atrial pressure (Stage II diastolic dysfunction). Right Ventricle: Normal right ventricular size. Normal right ventricular systolic function. Moderate right ventricular hypertrophy. Left Atrium: There is moderate enlargement of left atrium. Right Atrium: There is moderate enlargement of right atrium. Mitral Valve: Normal appearance of the mitral valve. Normal appearance and function of the mitral valve with trace physiologic regurgitation. Aortic Valve: Normal appearance of the aortic valve. Mild aortic valve regurgitation. Tricuspid Valve: Normal appearance of the tricuspid valve. Estimated peak PA systolic pressure 40 mmHg. There is mild tricuspid regurgitation. Pulmonic Valve: Normal pulmonic valve appearance. There is mild pulmonic regurgitation. Pericardium: Trivial to small pericardial effusion. Aorta: Normal aortic root. IVC: Normal size and normal respiratory collapse consistent with normal right atrial pressure. Conclusions: Normal left ventricular cavity size. Severe asymmetric septal hypertrophy. Septum 1.8cm, inferolateral wall 1.5cm. Moderate global left ventricular systolic dysfunction. Ejection fraction is visually estimated at 35 %. Tissue Doppler/Mitral Doppler indices are consistent with pseudonormalization with mildly elevated left atrial pressure (Stage II diastolic dysfunction). Normal right ventricular size. Normal right ventricular systolic function. Moderate right ventricular hypertrophy. Mild aortic valve regurgitation. There is moderate enlargement of left atrium.There is moderate enlargement of right atrium. Estimated peak PA systolic pressure 40 mmHg. Normal size and normal respiratory collapse consistent with normal right atrial pressure. Normal size and normal respiratory collapse consistent with normal right atrial pressure. Electronically Signed By: Jared Tee 2018-12-25 12:36:46 PDT
[2018-12-25] MEDS ORDERED: ISOSORBIDE DINITRATE 10 MG TAB PO SCH (13:00)
[2018-12-25] MEDS: AMLODIPINE 10 MG TAB PO SCH (13:49)
[2018-12-26] VITALS (13 sets, daily range): BP systolic 125–149; BP diastolic 75–93; PULSE 60–73; RESP 17–19
[2018-12-26] MEDS: PANTOPRAZOLE (EC) 40 MG TAB PO SCH (06:31)
[2018-12-26] MEDS: HEPARIN 5,000 UNIT/1 ML VIAL SC SCH ×3 (06:35→21:43)
[2018-12-26] MEDS: ASPIRIN 81 MG TAB PO SCH (08:13)
[2018-12-26] MEDS: AMLODIPINE 10 MG TAB PO SCH (08:14)
--- NOTE | 2018-12-26 11:12 | PN ---
Date/Time of Note Date/Time of Note DATE: 12/26/18 TIME: 11:10 Assessment/Plan VTE Prophylaxis Risk score (from Ns)>0 risk: 2 SCD applied (from [facility]): No SCD contraindicated: low risk/ambulating Pharmacological prophylaxis: NA/contraindicated Pharm contraindication: low risk/ambulating Lines/Catheters IV C[facility]ter Type (from [facility] Saline Lock Urinary Cath still in place: No Assessment/Plan Assessment/Plan 48 yo man with uncontrolled hypertension and chronic congestive heart failure presents with shortness of breath. #Hypertension - Patient says at home blood pressure typically runs systolic 180s-200s. - Continue carvedilol - Also on amlodpine - Would benefit from ACEi but not now while in [facility] - Elevated Cr compared to baseline - Hold ACEi, renally dose all meds, no nephrotoxins. - Dr. Joseph consulted - Cr still rising. Tentative plan to monitor in house unless renal is willing to follow in clinic. #diastolic CHF exacerbation: - Patient's EF approximately 1 year ago showed 50% ejection fraction. Will re peat echo. - CXR shows vascular congestion, he reports orthopnea. - Now s/p diuresis he appears euvolemic. Will keep net even. - Dr. Tee consulted. # DVT GI prophylaxis: SCDs, Protonix Result Diagram: 12/26/1831 12/26/18 05 Subjective 24 Hr Interval Summary Free Text/Dictation No acute overnight events. Patient feeling well, no complaints. Blood pressure under much better control. Discussed plan with patient. He is agreeable to stay until kidney function starts improving. Exam/Review of Systems Exam Vitals Vital Signs Date Temp Pulse Resp B/P (MAP) Pulse Ox O2 O2 Flow FiO2 Time Delivery Rate 12/26/18 70 08:01 12/26/18 98.4 18 149/92 96 07:42 (111) 12/25/18 Room Air 20:48 Intake and Output 12/25/18 12/25/18 12/26/18 1515:00 23:00 07:00 IntakeIntake Total 442.5 ml 200 ml 500 ml OutputOutput Total 1150 ml 1650 ml BalanceBalance -707.5 ml -1450 ml 500 ml Exam General: Well developed man lying in bed he does not appear to be in any acute distress HEENT: Atraumatic, normocephalic. The pupils are equal, round and reactive. Extraocular motor are intact Neck: Supple with full range of motion. No rigidity or meningismus, No JVD. Chest: Nontender Lungs: Coarse breath sounds bilaterally, mild rales at the bases, non-labored breathing Heart: Normal S1-S2, Regular rhythm and rate. Positive JVD Abdomen: Soft , nontender, nondistended , hyperactive bowel sounds are present. No guarding no rebound tenderness , Extremities: Normal to inspection, no edema no cyanosis Results Results 24hrs Laboratory Tests Test 12/25/18 12:30 12/26/18 05:31 Urine Eosinophils % 0.0 Urine Random Creatinine 20.03 Urine Random Sodium 89 Urine Protein/Creatinine Ratio 0.94 Urine Total Protein 19.0 H White Blood Count 7.1 Red Blood Count 4.66 L Hemoglobin 13.7 L Hematocrit 41.0 L Mean Corpuscular Volume 88.0 Mean Corpuscular Hemoglobin 29.4 Mean Corpuscular Hemoglobin Concent 33.4 Red Cell Distribution Width 14.5 Platelet Count 228 Mean Platelet Volume 10.2 Immature Granulocytes % 0.300 Neutrophils % 68.1 Lymphocytes % 19.2 Monocytes % 9.6 Eosinophils % 1.8 Basophils % 1.0 Nucleated Red Blood Cells % 0.0 Immature Granulocytes # 0.020 Neutrophils # 4.8 Lymphocytes # 1.4 Monocytes # 0.7 Eosinophils # 0.1 Basophils # 0.1 Nucleated Red Blood Cells # 0.0 Sodium Level 139 Potassium Level 3.4 L Chloride Level 102 Carbon Dioxide Level 25 Anion Gap 12 Blood Urea Nitrogen 33 H Creatinine 3.15 H Est Glomerular Filtrat Rate mL/min 21 L Glucose Level 97 Uric Acid 10.3 H Calcium Level 9.5 Total Bilirubin 0.5 Direct Bilirubin 0.00 Indirect Bilirubin 0.5 Aspartate Amino Transf (AST/SGOT) 14 L Alanine Aminotransferase (ALT/SGPT) 23 Alkaline Phosphatase 115 Creatine Kinase 44 Total Protein 6.8 Albumin 3.8 Globulin 3.00 Albumin/Globulin Ratio 1.26 Medications Medication Current Medications Ondansetron HCl (Zofran Inj) 4 mg Q6H PRN IV NAUSEA AND/OR VOMITING; Start 12/24/18 at 23:30 Acetaminophen (Tylenol Liquid) 650 mg Q6H PRN PO PAIN LEVEL 1-3 OR FEVER Last administered on 12/25/18at 12:35; Admin Dose 650 MG; Start 12/24/18 at 23:30 Docusate Sodium (Colace) 100 mg Q12H PRN PO CONSTIPATION; Start 12/24/18 at 23:30 Bisacodyl (Dulcolax) 5 mg DAILY PRN PO CONSTIPATION; Start 12/24/18 at 23:30 Heparin Sodium (Porcine) (Heparin (5000 Units/1ml)) 5,000 unit Q8 SC Last administered on 12/26/18 06:35; Admin Dose 5,000 UNIT; Start 12/24/18 at 23:30 Amlodipine Besylate (Norvasc) 10 mg DAILY PO Last administered on 12/26/18 08:14; Admin Dose 10 MG; Start 12/25/18 at 12:00 Aspirin (Aspirin) 81 mg DAILY PO Last administered on 12/26/18at 08:13; Admin Dose 81 MG; Start 12/26/18 at 09:00 Carvedilol (Coreg) 25 mg BID PO Last administered on 12/26/18 08:14; Admin Dose 25 MG; Start 12/25/18 at 21:00 Pantoprazole (Protonix Tab) 40 mg DAILY@06 PO Last administered on 12/26/18 06:31; Admin Dose 40 MG; Start 12/26/18 at 06:00 FAWAD CREWS MD Dec 26, 2018 11:12
--- NOTE | 2018-12-26 14:14 | CONS ---
Assessment/Plan Cardiology NYHA: IV Heart Failure Type: Acute on Chronic Heart Failure Type: Diastolic Assessment/Plan Hospital Course (Demo Recall) Hypertensive crisis: Admission BP 210/150s. Now better and off NTG drip Acute on chronic systolic CHF: Diuresed on admission. Euvolemic on my exam Cardiomyopathy: EF 35% and apparently known and followed by outpt cardiology. Unclear what workup has been done. Could be ischemic but has severe LVH and RVH which is worrisome for an infiltrative cardiomyopathy especially with renal disease (?amyloid). Burnt out hypertensive cardiomyopathy also in differential Acute on chronic renal failure: Previous known Cr 1.5 2017. ?new baseline from progression -consider amyloid workup inpt vs outpt -start lasix 40mg PO daily -if renal function stable, add ACEI/ARB and can stop amlodipine 10mg -coreg 25mg BID -ASA Consultation Date/Type/Reason Admit Date/Time Dec 24, 2018 at 22:21 Initial Consult Date 12/25/18 Type of Consult Cardiology Requesting Provider: AMINA ESTRADA Date/Time of Note DATE: 12/26/18 TIME: 14:09 24 HR Interval Summary Free Text/Dictation BP better controlled and off NTG drip since yesterday. Feels much better. Denies SOB. He apparently has a graphics software engineer he sees at [facility] and has known cardiomyopathy. He is not sure what was done about it. He last saw his graphics software engineer 4 months ago. Exam/Review of Systems Vital Signs Vitals Vital Signs Date Temp Pulse Resp B/P (MAP) Pulse Ox O2 O2 Flow FiO2 Time Delivery Rate 12/26/18 61 12:01 12/26/18 98.0 18 125/77 95 11:35 (93) 12/25/18 Room Air 20:48 Intake and Output 12/25/18 12/25/18 12/26/18 1515:00 23:00 07:00 IntakeIntake Total 442.5 ml 200 ml 500 ml OutputOutput Total 1150 ml 1650 ml BalanceBalance -707.5 ml -1450 ml 500 ml Exam Constitutional: alert, oriented Psych: no complaints, nl mood/affect Head: normocephalic, atraumatic Neck: jvd (9cm) Respiratory: diminished breath sounds; No clear to auscultation Cardiovascular: regular rate and rhythm; No edema, No systolic murmur Gastrointestinal: soft, non-tender; No distended Musculoskeletal: nl extremities to inspection Neurological: nl mental status, nl speech Labs Result Diagram: 12/26/1831 12/26/18 0531 Results 24hrs Laboratory Tests Test 12/26/18 05:31 White Blood Count 7.1 Red Blood Count 4.66 L Hemoglobin 13.7 L Hematocrit 41.0 L Mean Corpuscular Volume 88.0 Mean Corpuscular Hemoglobin 29.4 Mean Corpuscular Hemoglobin Concent 33.4 Red Cell Distribution Width 14.5 Platelet Count 228 Mean Platelet Volume 10.2 Immature Granulocytes % 0.300 Neutrophils % 68.1 Lymphocytes % 19.2 Monocytes % 9.6 Eosinophils % 1.8 Basophils % 1.0 Nucleated Red Blood Cells % 0.0 Immature Granulocytes # 0.020 Neutrophils # 4.8 Lymphocytes # 1.4 Monocytes # 0.7 Eosinophils # 0.1 Basophils # 0.1 Nucleated Red Blood Cells # 0.0 Sodium Level 139 Potassium Level 3.4 L Chloride Level 102 Carbon Dioxide Level 25 Anion Gap 12 Blood Urea Nitrogen 33 H Creatinine 3.15 H Est Glomerular Filtrat Rate mL/min 21 L Glucose Level 97 Uric Acid 10.3 H Calcium Level 9.5 Total Bilirubin 0.5 Direct Bilirubin 0.00 Indirect Bilirubin 0.5 Aspartate Amino Transf (AST/SGOT) 14 L Alanine Aminotransferase (ALT/SGPT) 23 Alkaline Phosphatase 115 Creatine Kinase 44 Total Protein 6.8 Albumin 3.8 Globulin 3.00 Albumin/Globulin Ratio 1.26 Medications Medications Current Medications Ondansetron HCl (Zofran Inj) 4 mg Q6H PRN IV NAUSEA AND/OR VOMITING; Start 12/24/18 at 23:30 Acetaminophen (Tylenol Liquid) 650 mg Q6H PRN PO PAIN LEVEL 1-3 OR FEVER Last administered on 12/25/18at 12:35; Admin Dose 650 MG; Start 12/24/18 at 23:30 Docusate Sodium (Colace) 100 mg Q12H PRN PO CONSTIPATION; Start 12/24/18 at 23:30 Bisacodyl (Dulcolax) 5 mg DAILY PRN PO CONSTIPATION; Start 12/24/18 at 23:30 Heparin Sodium (Porcine) (Heparin (5000 Units/1ml)) 5,000 unit Q8 SC Last administered on 12/26/18at 06:35; Admin Dose 5,000 UNIT; Start 12/24/18 at 23:30 Amlodipine Besylate (Norvasc) 10 mg DAILY PO Last administered on 12/26/18 08:14; Admin Dose 10 MG; Start 12/25/18 at 12:00 Aspirin (Aspirin) 81 mg DAILY PO Last administered on 12/26/18 08:13; Admin Dose 81 MG; Start 12/26/18 at 09:00 Carvedilol (Coreg) 25 mg BID PO Last administered on 12/26/18 08:14; Admin Dose 25 MG; Start 12/25/18 at 21:00 Pantoprazole (Protonix Tab) 40 mg DAILY@06 PO Last administered on 12/26/18 06:31; Admin Dose 40 MG; Start 12/26/18 at 06:00 IMMANUEL JIMÉNEZ Dec 26, 2018 14:14
[2018-12-26] MEDS ORDERED: POTASSIUM CHLORIDE 20 MEQ POWDER FOR ORAL SOLN PO ONE (14:30)
[2018-12-26] MEDS: FUROSEMIDE 40 MG TAB PO SCH (14:36)
--- NOTE | 2018-12-26 16:39 | CONS ---
Assessment/Plan Assessment/Plan Assessment/Plan (Daily) 1. acute kidney injury vs Acute kidney injury on CKD III 2. Hypertensive emergency 3. acute chest pain 4. H.o HTN 5. Diastoic CHF 6. H/o CKD with baseline Cr 1.5 7. Hypokalemia- replaced; fu am BMP Plan: Transferred from ICU to tele CXR mildly congested, SP NTG drip cont PO BP meds sp lasix 20mg IV x 1 dose Renal US Unremarkable renal ultrasound. No evidence of renal calculi or obstructive uropathy Urine studies - Urine Na- WNL - Urine protein/Cr ration- ELEVATED- 19.0 - urine Eosinophils 0 - CK total -Uric acid - 10.3, start on Allopurinol 100 po BID. Thanks for consultation, we will continue to follow up.Patient seen in collaboration with Dr Joseph Consultation Date/Type/Reason Admit Date/Time Dec 24, 2018 at 22:21 Initial Consult Date 12/25/18 Requesting Provider: AMINA ESTRADA Date/Time of Note DATE: 12/26/18 TIME: 16:31 24 HR Interval Summary Free Text/Dictation - got transferred from ICU -resting in bed -Patient seems comfortable but c/o chest pain; no s/s noticed dw staff Detailed Summary Eyes: no complaints ENT: no complaints Respiratory: no complaints Cardiovascular: chest pain Gastrointestinal: no complaints Genitourinary: no complaints Musculoskeletal: no complaints Skin: no complaints Neurologic: no complaints Endocrine: no complaints Lymphatic: no complaints Psychological: nl mood/affect Immunologic: no complaints Exam/Review of Systems Exam Vitals Vital Signs Date Temp Pulse Resp B/P (MAP) Pulse Ox O2 O2 Flow FiO2 Time Delivery Rate 12/26/18 98.5 71 18 135/86 98 16:03 (102) 12/25/18 Room Air 20:48 Intake and Output 12/25/18 12/25/18 12/26/18 1515:00 23:00 07:00 IntakeIntake Total 442.5 ml 200 ml 500 ml OutputOutput Total 1150 ml 1650 ml BalanceBalance -707.5 ml -1450 ml 500 ml Constitutional: alert, oriented, well developed Psych: nl mood/affect Head: atraumatic Eyes: nl lids, nl sclera ENMT: nl external ears & nose Neck: non-tender Respiratory: clear to auscultation Cardiovascular: nl pulses, other (s1s2) Gastrointestinal: soft, non-tender Musculoskeletal: nl extremities to inspection Extremities: normal pulses Neurological: nl mental status, nl speech Skin: nl turgor Lymph: nontender Results Result Diagram: 12/26/18 0531 12/26/18 0531 Results 24hrs Laboratory Tests Test 12/26/18 05:31 White Blood Count 7.1 Red Blood Count 4.66 L Hemoglobin 13.7 L Hematocrit 41.0 L Mean Corpuscular Volume 88.0 Mean Corpuscular Hemoglobin 29.4 Mean Corpuscular Hemoglobin Concent 33.4 Red Cell Distribution Width 14.5 Platelet Count 228 Mean Platelet Volume 10.2 Immature Granulocytes % 0.300 Neutrophils % 68.1 Lymphocytes % 19.2 Monocytes % 9.6 Eosinophils % 1.8 Basophils % 1.0 Nucleated Red Blood Cells % 0.0 Immature Granulocytes # 0.020 Neutrophils # 4.8 Lymphocytes # 1.4 Monocytes # 0.7 Eosinophils # 0.1 Basophils # 0.1 Nucleated Red Blood Cells # 0.0 Sodium Level 139 Potassium Level 3.4 L Chloride Level 102 Carbon Dioxide Level 25 Anion Gap 12 Blood Urea Nitrogen 33 H Creatinine 3.15 H Est Glomerular Filtrat Rate mL/min 21 L Glucose Level 97 Uric Acid 10.3 H Calcium Level 9.5 Total Bilirubin 0.5 Direct Bilirubin 0.00 Indirect Bilirubin 0.5 Aspartate Amino Transf (AST/SGOT) 14 L Alanine Aminotransferase (ALT/SGPT) 23 Alkaline Phosphatase 115 Creatine Kinase 44 Total Protein 6.8 Albumin 3.8 Globulin 3.00 Albumin/Globulin Ratio 1.26 Medications Medication Current Medications Ondansetron HCl (Zofran Inj) 4 mg Q6H PRN IV NAUSEA AND/OR VOMITING; Start 12/24/18 at 23:30 Acetaminophen (Tylenol Liquid) 650 mg Q6H PRN PO PAIN LEVEL 1-3 OR FEVER Last administered on 12/25/18at 12:35; Admin Dose 650 MG; Start 12/24/18 at 23:30 Docusate Sodium (Colace) 100 mg Q12H PRN PO CONSTIPATION; Start 12/24/18 at 23:30 Bisacodyl (Dulcolax) 5 mg DAILY PRN PO CONSTIPATION; Start 12/24/18 at 23:30 Heparin Sodium (Porcine) (Heparin (5000 Units/1ml)) 5,000 unit Q8 SC Last administered on 12/26/18 14:16; Admin Dose 5,000 UNIT; Start 12/24/18 at 23:30 Amlodipine Besylate (Norvasc) 10 mg DAILY PO Last administered on 12/26/18 08:14; Admin Dose 10 MG; Start 12/25/18 at 12:00 Aspirin (Aspirin) 81 mg DAILY PO Last administered on 12/26/18 08:13; Admin Dose 81 MG; Start 12/26/18 at 09:00 Carvedilol (Coreg) 25 mg BID PO Last administered on 12/26/18 08:14; Admin Dose 25 MG; Start 12/25/18 at 21:00 Pantoprazole (Protonix Tab) 40 mg DAILY@06 PO Last administered on 12/26/18 06:31; Admin Dose 40 MG; Start 12/26/18 at 06:00 Furosemide (Lasix) 40 mg DAILY PO Last administered on 12/26/18 14:36; Admin Dose 40 MG; Start 12/26/18 at 14:30 MAJO NIEVES Dec 26, 2018 16:39
[2018-12-26] MEDS: ALLOPURINOL 100 MG TAB PO SCH (21:14)
[2018-12-27] VITALS (8 sets, daily range): BP systolic 139–163; BP diastolic 87–103; PULSE 59–69; RESP 19–20
--- NOTE | 2018-12-27 05:22 | CONS ---
Assessment/Plan Assessment/Plan Assessment/Plan (Daily) 1. acute kidney injury vs Acute kidney injury on CKD III 2. Hypertensive emergency 3. acute chest pain 4. H.o HTN 5. Diastoic CHF 6. H/o CKD with baselien Cr 1.5 Plan: CXR mildly congested, SP NTG drip cont PO BP meds sp lasix 20mg IV x 1 dose Renal US Unremarkable renal ultrasound. No evidence of renal calculi or obstructive uropathy Urine studies - Urine Na- WNL - Urine protein/Cr ration- ELEVATED- 19.0 - urine Eosinophils 0 - CK total -Uric acid - 10.3, start on Allopurinol 100 po BID. Thanks for consultation, we will continue to follow up.Patient seen in collaboration with Dr Joseph Consultation Date/Type/Reason Admit Date/Time Dec 24, 2018 at 22:21 Initial Consult Date 12/25/18 Type of Consult NEPHROLOGY Requesting Provider: AMINA ESTRADA Date/Time of Note DATE: 12/27/18 TIME: 05:22 24 HR Interval Summary Free Text/Dictation - NAD - Awake, feels better - denies c/o chest pain - no new issues reported ; dw staff Constitutional: improved Detailed Summary Eyes: no complaints ENT: no complaints Respiratory: no complaints Cardiovascular: chest pain (ON AND OFF.) Gastrointestinal: no complaints Genitourinary: no complaints Musculoskeletal: no complaints Skin: no complaints Neurologic: no complaints Endocrine: no complaints Lymphatic: no complaints Psychological: nl mood/affect Immunologic: no complaints Exam/Review of Systems Exam Vitals Vital Signs Date Temp Pulse Resp B/P (MAP) Pulse Ox O2 O2 Flow FiO2 Time Delivery Rate 12/27/18 64 04:00 12/27/18 97.9 19 163/99 96 03:49 (120) 12/25/18 Room Air 20:48 Intake and Output 12/26/18 12/26/18 12/27/18 1515:00 23:00 07:00 IntakeIntake Total 360 ml 640 ml BalanceBalance 360 ml 640 ml Constitutional: alert, oriented, well developed Psych: nl mood/affect Head: atraumatic Eyes: nl lids, nl sclera ENMT: nl external ears & nose Neck: non-tender Respiratory: clear to auscultation Cardiovascular: nl pulses, other (s1s2) Gastrointestinal: soft, non-tender Musculoskeletal: nl extremities to inspection Extremities: normal pulses Neurological: nl mental status, nl speech Skin: nl turgor Lymph: nl lymph nodes Results Result Diagram: 12/26/1831 12/26/1831 Results 24hrs Laboratory Tests Test 12/26/18 05:31 White Blood Count 7.1 Red Blood Count 4.66 L Hemoglobin 13.7 L Hematocrit 41.0 L Mean Corpuscular Volume 88.0 Mean Corpuscular Hemoglobin 29.4 Mean Corpuscular Hemoglobin Concent 33.4 Red Cell Distribution Width 14.5 Platelet Count 228 Mean Platelet Volume 10.2 Immature Granulocytes % 0.300 Neutrophils % 68.1 Lymphocytes % 19.2 Monocytes % 9.6 Eosinophils % 1.8 Basophils % 1.0 Nucleated Red Blood Cells % 0.0 Immature Granulocytes # 0.020 Neutrophils # 4.8 Lymphocytes # 1.4 Monocytes # 0.7 Eosinophils # 0.1 Basophils # 0.1 Nucleated Red Blood Cells # 0.0 Sodium Level 139 Potassium Level 3.4 L Chloride Level 102 Carbon Dioxide Level 25 Anion Gap 12 Blood Urea Nitrogen 33 H Creatinine 3.15 H Est Glomerular Filtrat Rate mL/min 21 L Glucose Level 97 Uric Acid 10.3 H Calcium Level 9.5 Total Bilirubin 0.5 Direct Bilirubin 0.00 Indirect Bilirubin 0.5 Aspartate Amino Transf (AST/SGOT) 14 L Alanine Aminotransferase (ALT/SGPT) 23 Alkaline Phosphatase 115 Creatine Kinase 44 Total Protein 6.8 Albumin 3.8 Globulin 3.00 Albumin/Globulin Ratio 1.26 Medications Medication Current Medications Ondansetron HCl (Zofran Inj) 4 mg Q6H PRN IV NAUSEA AND/OR VOMITING; Start 12/24/18 at 23:30 Acetaminophen (Tylenol Liquid) 650 mg Q6H PRN PO PAIN LEVEL 1-3 OR FEVER Last administered on 12/25/18at 12:35; Admin Dose 650 MG; Start 12/24/18 at 23:30 Docusate Sodium (Colace) 100 mg Q12H PRN PO CONSTIPATION; Start 12/24/18 at 23:30 Bisacodyl (Dulcolax) 5 mg DAILY PRN PO CONSTIPATION; Start 12/24/18 at 23:30 Heparin Sodium (Porcine) (Heparin (5000 Units/1ml)) 5,000 unit Q8 SC Last administered on 12/26/18at 21:43; Admin Dose 5,000 UNIT; Start 12/24/18 at 23:30 Amlodipine Besylate (Norvasc) 10 mg DAILY PO Last administered on 12/26/18 08:14; Admin Dose 10 MG; Start 12/25/18 at 12:00 Aspirin (Aspirin) 81 mg DAILY PO Last administered on 12/26/18 08:13; Admin Dose 81 MG; Start 12/26/18 at 09:00 Carvedilol (Coreg) 25 mg BID PO Last administered on 12/26/18 21:14; Admin Dose 25 MG; Start 12/25/18 at 21:00 Pantoprazole (Protonix Tab) 40 mg DAILY@06 PO Last administered on 12/26/18 06:31; Admin Dose 40 MG; Start 12/26/18 at 06:00 Furosemide (Lasix) 40 mg DAILY PO Last administered on 12/26/18 14:36; Admin Dose 40 MG; Start 12/26/18 at 14:30 Allopurinol (Zyloprim) 100 mg BID PO Last administered on 12/26/18 21:14; Admin Dose 100 MG; Start 12/26/18 at 21:00 MAJO NIEVES Dec 27, 2018 05:22
[2018-12-27] MEDS: PANTOPRAZOLE (EC) 40 MG TAB PO SCH (06:18)
[2018-12-27] MEDS: HEPARIN 5,000 UNIT/1 ML VIAL SC SCH ×2 (06:34→14:00)
[2018-12-27] MEDS: ALLOPURINOL 100 MG TAB PO SCH (08:05)
[2018-12-27] MEDS: ASPIRIN 81 MG TAB PO SCH (08:05)
[2018-12-27] MEDS: FUROSEMIDE 40 MG TAB PO SCH (08:06)
[2018-12-27] MEDS: AMLODIPINE 10 MG TAB PO SCH (08:06)
[2018-12-27] MEDS ORDERED: LOSARTAN 50 MG TAB PO SCH (10:00)
--- NOTE | 2018-12-27 10:18 | CONS ---
Assessment/Plan Cardiology NYHA: IV Heart Failure Type: Acute on Chronic Heart Failure Type: Diastolic Assessment/Plan Hospital Course (Demo Recall) Hypertensive crisis: Admission BP 210/150s. Now better and off NTG drip Acute on chronic systolic CHF: Diuresed on admission. Euvolemic on my exam Cardiomyopathy: EF 35% and apparently known and followed by outpt cardiology. Unclear what workup has been done. Could be ischemic but has severe LVH and RVH which is worrisome for an infiltrative cardiomyopathy especially with renal disease (?amyloid). Burnt out hypertensive cardiomyopathy also in differential Acute on chronic renal failure: Previous known Cr 1.5 2017. ?new baseline from progression -consider amyloid workup inpt vs outpt -otherwise ok for discharge from my perspective with below meds -losartan 50mg -lasix 40mg PO daily -amlodipine 10mg -coreg 25mg BID -ASA Consultation Date/Type/Reason Admit Date/Time Dec 24, 2018 at 22:21 Initial Consult Date 12/25/18 Type of Consult Cardiology Requesting Provider: AMINA ESTRADA Date/Time of Note DATE: 12/27/18 TIME: 10:17 24 HR Interval Summary Free Text/Dictation No events. No complaints. Cr stable Exam/Review of Systems Vital Signs Vitals Vital Signs Date Temp Pulse Resp B/P (MAP) Pulse Ox O2 O2 Flow FiO2 Time Delivery Rate 12/27/18 68 08:01 12/27/18 97.8 19 162/103 97 07:51 (122) 12/25/18 Room Air 20:48 Intake and Output 12/26/18 12/26/18 12/27/18 1515:00 23:00 07:00 IntakeIntake Total 360 ml 640 ml 580 ml BalanceBalance 360 ml 640 ml 580 ml Exam Constitutional: alert, oriented Psych: no complaints, nl mood/affect Head: normocephalic, atraumatic Neck: supple; No jvd Respiratory: clear to auscultation; No crackles/rales Cardiovascular: regular rate and rhythm; No edema Gastrointestinal: soft, non-tender Neurological: nl mental status, nl speech Labs Result Diagram: 12/27/18 0515 12/27/18 0515 Results 24hrs Laboratory Tests Test 12/27/18 05:15 White Blood Count 7.1 Red Blood Count 4.75 Hemoglobin 14.3 Hematocrit 41.7 L Mean Corpuscular Volume 87.8 Mean Corpuscular Hemoglobin 30.1 Mean Corpuscular Hemoglobin Concent 34.3 Red Cell Distribution Width 14.3 Platelet Count 242 Mean Platelet Volume 10.3 Immature Granulocytes % 0.400 Neutrophils % 67.4 Lymphocytes % 18.4 Monocytes % 10.9 Eosinophils % 1.8 Basophils % 1.1 Nucleated Red Blood Cells % 0.0 Immature Granulocytes # 0.030 Neutrophils # 4.8 Lymphocytes # 1.3 Monocytes # 0.8 Eosinophils # 0.1 Basophils # 0.1 Nucleated Red Blood Cells # 0.0 Sodium Level 139 Potassium Level 3.7 Chloride Level 103 Carbon Dioxide Level 24 Anion Gap 12 Blood Urea Nitrogen 33 H Creatinine 3.00 H Est Glomerular Filtrat Rate mL/min 22 L Glucose Level 105 Calcium Level 9.5 Total Bilirubin 0.6 Direct Bilirubin 0.00 Indirect Bilirubin 0.6 Aspartate Amino Transf (AST/SGOT) 20 Alanine Aminotransferase (ALT/SGPT) 20 Alkaline Phosphatase 113 Total Protein 7.5 Albumin 4.2 Globulin 3.30 H Albumin/Globulin Ratio 1.27 Medications Medications Current Medications Ondansetron HCl (Zofran Inj) 4 mg Q6H PRN IV NAUSEA AND/OR VOMITING; Start 12/24/18 at 23:30 Acetaminophen (Tylenol Liquid) 650 mg Q6H PRN PO PAIN LEVEL 1-3 OR FEVER Last administered on 12/25/18at 12:35; Admin Dose 650 MG; Start 12/24/18 at 23:30 Docusate Sodium (Colace) 100 mg Q12H PRN PO CONSTIPATION; Start 12/24/18 at 23:30 Bisacodyl (Dulcolax) 5 mg DAILY PRN PO CONSTIPATION; Start 12/24/18 at 23:30 Heparin Sodium (Porcine) (Heparin (5000 Units/1ml)) 5,000 unit Q8 SC Last administered on 12/27/18at 06:34; Admin Dose 5,000 UNIT; Start 12/24/18 at 23:30 Amlodipine Besylate (Norvasc) 10 mg DAILY PO Last administered on 12/27/18at 08:06; Admin Dose 10 MG; Start 12/25/18 at 12:00 Aspirin (Aspirin) 81 mg DAILY PO Last administered on 12/27/18at 08:05; Admin Dose 81 MG; Start 12/26/18 at 09:00 Carvedilol (Coreg) 25 mg BID PO Last administered on 12/27/18 08:06; Admin Dose 25 MG; Start 12/25/18 at 21:00 Pantoprazole (Protonix Tab) 40 mg DAILY@06 PO Last administered on 12/27/18 06:18; Admin Dose 40 MG; Start 12/26/18 at 06:00 Furosemide (Lasix) 40 mg DAILY PO Last administered on 12/27/18 08:06; Admin Dose 40 MG; Start 12/26/18 at 14:30 Allopurinol (Zyloprim) 100 mg BID PO Last administered on 12/27/18 08:05; Admin Dose 100 MG; Start 12/26/18 at 21:00 Losartan Potassium (Cozaar) 50 mg DAILY PO Last administered on 12/27/18 10:13; Admin Dose 50 MG; Start 12/27/18 at 10:00 IMMANUEL JIMÉNEZ Dec 27, 2018 10:18
[2018-12-27] MEDS ORDERED: CARV25TA79 PO (12:10)
[2018-12-27] MEDS ORDERED: FURO40TA4 PO (12:10)
[2018-12-27] MEDS ORDERED: AMLO-147 PO (12:10)
[2018-12-27] MEDS ORDERED: LOSA50TA2 PO (12:10)
--- NOTE | 2018-12-27 12:14 | PDOCDIS ---
Discharge Instructions DIAGNOSIS Discharge Diagnosis Hypertension Diastolic congestive heart failure CONDITION [id number] Patient Condition: [id number] Good HOME CARE INSTRUCTIONS: [id number] Diet Instructions: [id number] Reduced Sodium ACTIVITY: [id number] Activity Restrictions: [id number] No Restrictions FOLLOW UP/APPOINTMENTS Follow-up Plan 1. Take all medications as prescribed. 2. See Dr. Joseph in clinic in one week. Address: [address] [place] [id number] 3. Make an appointment with your director enterprise sales at [facility] in 2-4 weeks. FAWAD CREWS MD Dec 27, 2018 12:14
--- NOTE | 2018-12-27 16:25 | DS ---
Date/Time of Note Date/Time of Note DATE: 12/27/18 TIME: 16:18 Discharge Summary Admission/Discharge Info Admit Date/Time Dec 24, 2018 at 22:21 Discharge Date/Time Dec 27, 2018 at 15:30 Discharge Diagnosis Hypertension Diastolic congestive heart failure Patient Condition: Fair Consults Dr. Tee, cardiology Dr. Joseph, nephrology Procedures None Hx of Present Illness Chief complaint: Chest pain, shortness of breath for the last several weeks This is a very pleasant 48-year-old male with a past medical history of a pacemaker who presents to the emergency department complaining of chest pain and shortness of breath for the past several weeks. The patient indicates that the chest pain and shortness of breath has been persistent. The patient is unable to sleep at night without feeling short of breath when he is lying supine. He also indicates he is unable to walk several steps before becoming short of breath. Yesterday evening he stated his symptoms of shortness of breath significantly worsened. He denies any recent travel or prolonged immobilization. He is currently only on Coreg, he did report that in the past he was on Lasix.. The loop recorder was placed 3 years ago and the patient states his ux interaction designer named Dr. Coleman. He denies any fever shaking or chills. He denies any abdominal pain. Allergies: NKDA Medications: See NOV Hospital Course The patient was admitted to the ICU; unable to control blood pressure on oral medications so he was started on nitroglycerin gtt. He was started on carvedilol and amlodipine and nitro gtt was titrated off. His Cr is significantly increased from baseline to 3. Over hospital course Cr was stable; downtrending; he was started on losartan. Patient was feeling well, ambulatory at discharge. Home Meds Active Scripts Furosemide* (Furosemide*) 40 Mg Tablet, 40 MG PO DAILY, #30 TAB Prov:FAWAD CREWS MD 12/27/18 Losartan Potassium* (Cozaar*) 50 Mg Tablet, 50 MG PO DAILY, #60 TAB Prov:FAWAD CREWS MD 12/27/18 Carvedilol* (Carvedilol*) 25 Mg Tablet, 25 MG PO BID, #60 TAB Prov:FAWAD CREWS MD 12/27/18 Amlodipine Besylate* (Amlodipine Besylate*) 10 Mg Tablet, 10 MG PO DAILY, #60 TAB Prov:FAWAD CREWS MD 12/27/18 Discontinued Reported Medications Carvedilol* (Carvedilol*) 3.125 Mg Tablet, 3.125 MG PO BID, #60 TAB 12/24/18 Follow-up Plan 1. Take all medications as prescribed. 2. See Dr. Joseph in clinic in one week. Address: [address] [place] [address] [address], [place] [address] 3. Make an appointment with your ux interaction designer at [facility] in 2-4 weeks. Primary Care Provider Care Physician No Primary Time spent on discharge: > 30 minutes Pending Labs Laboratory Tests Test 12/27/18 05:15 White Blood Count 7.1 10^3/ul (4.8-10.8) Red Blood Count 4.75 10^6/ul (4.70-6.10) Hemoglobin 14.3 g/dl (14.0-18.0) Hematocrit 41.7 % (42.0-52.0) Mean Corpuscular Volume 87.8 fl (82.0-101.0) Mean Corpuscular Hemoglobin 30.1 pg (29.0-33.0) Mean Corpuscular Hemoglobin Concent 34.3 g/dl (32.0-37.0) Red Cell Distribution Width 14.3 % (11.5-14.5) Platelet Count 242 10^3/UL (140-415) Mean Platelet Volume 10.3 fl (7.4-10.4) Immature Granulocytes % 0.400 % (0.001-0.429) Neutrophils % 67.4 % (39.0-77.0) Lymphocytes % 18.4 % (15.0-51.0) Monocytes % 10.9 % (0.0-11.0) Eosinophils % 1.8 % (0.0-7.0) Basophils % 1.1 % (0.0-2.0) Nucleated Red Blood Cells % 0.0 /100WBC (0.0-0.0) Immature Granulocytes # 0.030 10^3/ul (0.0-0.031) Neutrophils # 4.8 10^3/ul (1.6-7.5) Lymphocytes # 1.3 10^3/ul (0.8-2.9) Monocytes # 0.8 10^3/ul (0.3-0.9) Eosinophils # 0.1 10^3/ul (0.0-0.5) Basophils # 0.1 10^3/ul (0.0-0.1) Nucleated Red Blood Cells # 0.0 10^3/ul (0.0-0.0) Sodium Level 139 mmol/L (135-144) Potassium Level 3.7 mmol/L (3.5-5.1) Chloride Level 103 mmol/L (97-110) Carbon Dioxide Level 24 mmol/L (21-31) Anion Gap 12 (5-13) Blood Urea Nitrogen 33 mg/dl (7-20) Creatinine 3.00 mg/dl (0.61-1.24) Est Glomerular Filtrat Rate mL/min 22 mL/min (>60) Glucose Level 105 mg/dl (70-220) Calcium Level 9.5 mg/dl (8.4-10.2) Total Bilirubin 0.6 mg/dl (0.2-1.3) Direct Bilirubin 0.00 mg/dl (0.00-0.20) Indirect Bilirubin 0.6 mg/dl (0-1.1) Aspartate Amino Transf (AST/SGOT) 20 IU/L (15-46) Alanine Aminotransferase (ALT/SGPT) 20 IU/L (13-69) Alkaline Phosphatase 113 IU/L (42-121) Total Protein 7.5 g/dl (6.1-8.1) Albumin 4.2 g/dl (3.3-4.9) Globulin 3.30 g/dl (1.3-3.2) Albumin/Globulin Ratio 1.27 FAWAD CREWS MD Dec 27, 2018 16:25
== END 2018-12-27 15:30 | disposition home or self-care (01) | DRG 291 ==
LOC: E/R 19:18 → ICU 22:21 → 6WM 12-25 20:30
PROVIDERS: ADMIT Family Medicine; ATTEND Internal Medicine
DX: I13.0 Hypertensive heart and chronic kidney disease with heart failure and stage 1 through stage 4 chronic kidney disease, or unspecified chronic kidney disease (principal); I50.33 Acute on chronic diastolic (congestive) heart failure; N17.9 Acute kidney failure, unspecified; I16.1 Hypertensive emergency; I42.9 Cardiomyopathy, unspecified; N18.3 Chronic kidney disease, stage 3 (moderate); E78.5 Hyperlipidemia, unspecified; E87.6 Hypokalemia; Z72.0 Tobacco use; Z79.82 Long term (current) use of aspirin; Z95.0 Presence of cardiac pacemaker
CPT/HCPCS: 71045; 76775; 80053; 80061; 81003; 82306; 82550; 82553; 82570; 83036; 83735; 83880; 84300; 84443; 84484; 84560; 85025; 85610; 85730; 87081; 89190; 93005; 93306; 96374; 96375; C9113; J1644; J1940; J2270; J2405